=== PATIENT | female | born 1980 | race Hispanic/Latino ===

== ENCOUNTER 2021-11-08 09:19 | Emergency (ER) | payer OTHER ==
[~2021-11-08] VITALS: Ht 162.6 cm; Wt 85.8 kg
[2021-11-08] MEDS ORDERED: HYGROTON25 MG PO (09:47)
[2021-11-08] MEDS ORDERED: HYDRALAZINE HCL 20 MG/ML VIAL IV STA (09:51)
[2021-11-08] MEDS ORDERED: HYDRALAZINE HCL 20 MG/ML VIAL ONE (10:09)
[2021-11-08] MEDS ORDERED: SODIUM CHLORIDE 0.9% 1000ML 1,000 ML IV ONE (10:15)
[2021-11-08] MEDS ORDERED: SODIUM CHLORIDE 0.9% 1000ML 1,000 ML ONE (10:19)
[2021-11-08] MEDS ORDERED: ACETAMINOPHEN 325 MG TAB PO ONE (10:45)
[2021-11-08] MEDS ORDERED: ACETAMINOPHEN 325 MG TAB ONE (11:00)
[2021-11-08] MEDS ORDERED: CLONIDINE HCL0.1 MG PO (13:17)
== END 2021-11-08 13:25 | disposition home or self-care (01) ==
LOC: FSED 09:57
DX: R07.89 Other chest pain (principal); I16.0 Hypertensive urgency; R11.0 Nausea; I10 Essential (primary) hypertension; R42 Dizziness and giddiness
CPT/HCPCS: 80053; 81003; 81025; 82553; 83880; 84484; 85025; 93005; 96374; 99283; J0360; J7030